=== PATIENT | male | born 1990 | race Caucasian/White ===

== ENCOUNTER 2022-09-19 09:51 | Emergency (ER) | payer OTHER ==
[~2022-09-19] VITALS: Ht 190.5 cm; Wt 127.3 kg
[2022-09-19] MEDS ORDERED: aspirin 81mg tab.chew PO ONE (10:05)
[2022-09-19] MEDS ORDERED: normal saline 1000ML IV soln IVB ONE (10:10)
[2022-09-19] MEDS ORDERED: ondansetron/PF 4mg/2ml inj IV ONE ×2 (10:10→10:15)
[2022-09-19] MEDS ORDERED: normal saline 1000ml 1,000 ML IV ONE (10:15)
[2022-09-19] MEDS ORDERED: morphine 4 MG/ML inj SYRINge IV ONE ×2 (10:15→11:35)
[2022-09-19] MEDS ORDERED: IODIXANOL 320 MG/ML INFUS..BTL 100ML IV ONE (10:21)
[2022-09-19 10:27] LABS: BASOPHILS # (AUTO) 0.1 X10'3 (0-0.2); BASOPHILS % (AUTO) 0.8 % (0-1); EOSINOPHILS # (AUTO) 0.1 X10'3 (0-0.9); EOSINOPHILS % (AUTO) 1.4 % (0-6); HEMATOCRIT 49.1 % (42.0-52.0); HEMOGLOBIN 16.8 g/dl (14.0-17.9); LYMPHOCYTES # (AUTO) 1.1 X10'3 (1.1-4.8); LYMPHOCYTES % (AUTO) 14.1 % (21-51); MEAN CORPUSCULAR HEMOGLOBIN 30.7 PG (27.0-31.0); MEAN CORPUSCULAR HGB CONC 34.3 g/dL (33.0-36.5); MEAN CORPUSCULAR VOLUME 89.6 FL (78-98); MEAN PLATELET VOLUME 8.7 FL (7.4-10.4); MONOCYTES # (AUTO) 1.1 X10'3 (0-0.9); MONOCYTES % (AUTO) 14.8 % (2-12); NEUTROPHILS # (AUTO) 5.3 X10'3 (1.8-7.7); NEUTROPHILS % (AUTO) 68.9 % (42-75); PLATELET COUNT 178 X10'3 (140-440); RED BLOOD COUNT 5.47 X10'6 (4.70-6.10); RED CELL DISTRIBUTION WIDTH 12.9 % (11.5-14.5); WHITE BLOOD COUNT 7.6 X10'3 (4.5-11.0)
[2022-09-19 10:36] LABS: APTT 25 SECONDS (22-32)
[2022-09-19 10:37] LABS: ALANINE AMINOTRANSFERASE 38 U/L (12-78); ALBUMIN 4.3 G/DL (3.4-5.0); ALBUMIN/GLOBULIN RATIO 1.4 (1.1-1.5); ALKALINE PHOSPHATASE 73 IU/L (46-116); ANION GAP 6 (8-16); ASPARTATE AMINO TRANSFERASE 29 U/L (10-37); BILIRUBIN,TOTAL 0.9 MG/DL (0.1-1.0); BLOOD UREA NITROGEN 10 MG/DL (7-18); BUN/CREATININE RATIO 7.6 (5.4-32.0); CALCIUM 9.5 MG/DL (8.5-10.1); CHLORIDE 103 MMOL/L (99-107); CREATININE 1.31 MG/DL (0.60-1.10); GLUCOSE 147 MG/DL (70-104); POTASSIUM 3.9 MMOL/L (3.5-5.1); SODIUM 138 MMOL/L (135-145); TOTAL CARBON DIOXIDE 28.9 MMOL/L (24-32); TOTAL PROTEIN 7.4 G/DL (6.4-8.2); eGFR 63 ML/MIN
[2022-09-19 10:58] LABS: D-DIMER < 0.19 MG/L FEU (0-0.50)
[2022-09-19] MEDS ORDERED: LIDOcaine Viscous 15ml cup MM ONE (11:35)
[2022-09-19] MEDS ORDERED: dicyclomine 10 MG capsule PO ONE (11:35)
[2022-09-19] MEDS ORDERED: pantoprazole 40 MG vial IV ONE (11:35)
[2022-09-19] MEDS ORDERED: mag hydrox/Alum hydrox/simeth 30ml oral suspension PO ONE (11:35)
[2022-09-19] MEDS ORDERED: DICY10CA88 PO (11:37)
[2022-09-19] MEDS ORDERED: PANT-47 PO (11:37)
[2022-09-19] MEDS ORDERED: pantoprazole 40MG/NS 100ML BAG 100 ML IV ONE (12:00)
[2022-09-19 14:28] VITALS: BP 119/76
== END 2022-09-19 15:02 | disposition home or self-care (01) ==
LOC: ER 09:52
DX: R07.9 Chest pain, unspecified (principal); R11.0 Nausea; Z79.899 Other long term (current) drug therapy
CPT/HCPCS: 36415; 71045; 71275; 74174; 80053; 83735; 83880; 84484; 85025; 85379; 85610; 85730; 86885; 86900; 86901; 86920; 93005; 96361; 96374; 96375; 96376; 99285; C9113; J2270; J2405; J3490; J7030; Q9967; 94760